=== PATIENT | male | born 1985 | race Caucasian/White ===

== ENCOUNTER 2017-12-10 14:38 | Emergency (ER) | payer SELFPAY ==
[~2017-12-10 14:38] MED LIST: CITA-156 PO; CLI150 PO; DICL-192 PO; EPIN0.3P15 IM; IBUP800T37 PO; LOR5/325 PO; NO MEDS; PER PO; PRED20TA6 PO; TRAM-420 PO
[2017-12-10 15:22] LABS: PLATELET COUNT, AUTOMATED 254 K/uL (150-450)
--- NOTE | 2017-12-10 15:25 | ER Report ---
History and Physical Time Seen By MD: 14:46 Hx. of Stated Complaint: PT REPORTS R GROIN AND R TESTICLE PAIN THAT STARTED YESTERDAY HPI/ROS CHIEF COMPLAINT: Abdomen/testicular pain HISTORY OF PRESENT ILLNESS: Patient is a 32-year-old male who presents the ED with complaint of right growing/right testicular pain that he had noted for the past day. He denies any injury. 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 Nausea, vomiting, diarrhea, constipation, fever. He states that he has not noted any dysuria, penile discharge, hematuria, increased urinary frequency. He denies any risk of STDs. He states they think he has noticed some testicular swelling now in his right testicle. He has no history of abdominal surgeries. REVIEW OF SYSTEMS: Constitutional: No fever, no chills. Eyes: No discharge. ENT: No sore throat. Cardiovascular: No chest pain, no palpitations. Respiratory: No cough, no shortness of breath. Gastrointestinal: See history of present illness. Genitourinary: See history of present illness. Musculoskeletal: No back pain. Skin: No rashes. Neurological: No headache. Allergies: Coded Allergies: BEE STINGS (Verified Allergy, Intermediate, ANAPHYLAXIS, 12/10/17) Penicillins (Verified Allergy, Mild, 12/10/17) Home Meds Active Scripts Epinephrine (EPIPEN 2-SEJAL) 0.3 Mg/0.3 Ml Pen.injctr, 0.3 MG IM ONCE, #2 VIAL Prov:KIESHA FLORES [facility] 02/10/17 Discontinued Scripts Prednisone (PREDNISONE) 20 Mg Tablet, 20 MG PO BID, #10 TAB Prov:KIESHA FLORES [facility] 02/10/17 Diclofenac Sodium (DICLOFENAC SODIUM) 50 Mg Tablet.dr, 50 MG PO TID, #20 TAB Prov:YAYA BLUE PA-C 01/13/17 Reviewed Nurses Notes: Yes Old Medical Records Reviewed: Yes Hx Smoking: Yes (1PPD) Smoking Status: Current: Every Day Smoker Hx Substance Use Disorder: No Hx Alcohol Use: No Constitutional Vital Sign - Last 24 Hours 12/10/17 12/10/17 12/10/17 12/10/17 14:40 14:48 14:53 15:00 Temp 97.5 Pulse 103 98 Resp 16 B/P (MAP) 132/86 132/86 (101) 129/85 (100) Pulse Ox 98 97 O2 Delivery Room Air 12/10/17 12/10/17 12/10/17 12/10/17 15:08 15:23 15:30 15:38 Pulse 90 87 B/P (MAP) 123/78 (93) Pulse Ox 94 97 95 12/10/17 12/10/17 12/10/17 12/10/17 15:43 15:58 16:00 16:13 Pulse 90 92 89 B/P (MAP) 130/89 (103) Pulse Ox 95 94 94 Physical Exam General Appearance: The patient is alert, has no immediate need for airway protection and no signs of toxicity. Patient appears to be in no acute distress. Eyes: Pupils equal and round no pallor or injection. ENT, Mouth: Mucous membranes are moist. Respiratory: There are no retractions, lungs are clear to auscultation. Cardiovascular: Regular rate and rhythm. Gastrointestinal: There is right lower quadrant/right groin pain with palpation. There is pain with palpation of the right testicle does appear to be some slight swelling in this area. No rebound or guarding is present. Normal bowel sounds in all 4 quadrants. Skin: Warm and dry, no rashes. Musculoskeletal: Neck is supple non tender. Extremities are nontender, nonswollen and have full range of motion. DIFFERENTIAL DIAGNOSIS: After history and physical exam differential diagnosis was considered for abdominal pain including but not limited to appendicitis, cholecystitis, gastritis and urinary tract infection. Medical Decision Making Data Points Result Diagram: 12/10/17 1451 12/10/17 1451 Laboratory Hematology Test 12/10/17 14:51 Red Blood Count 5.65 M/uL (4.00-5.60) Mean Corpuscular Volume 88.6 fL (80.0-96.0) Mean Corpuscular Hemoglobin 31.7 pg (26.0-33.0) Mean Corpuscular Hemoglobin Concent 35.8 g/dL (32.0-36.0) Red Cell Distribution Width 13.6 % (11.5-14.5) Mean Platelet Volume 8.0 fL (7.2-11.1) Neutrophils (%) (Auto) 70.9 % (39.4-72.5) Lymphocytes (%) (Auto) 18.0 % (17.6-49.6) Monocytes (%) (Auto) 9.4 % (4.1-12.4) Eosinophils (%) (Auto) 1.2 % (0.4-6.7) Basophils (%) (Auto) 0.5 % (0.3-1.4) Nucleated RBC Relative Count (auto) 0.1 /100WBC Neutrophils # (Auto) 10.5 K/uL (2.0-7.4) Lymphocytes # (Auto) 2.7 K/uL (1.3-3.6) Monocytes # (Auto) 1.4 K/uL (0.3-1.0) Eosinophils # (Auto) 0.2 K/uL (0.0-0.5) Basophils # (Auto) 0.1 K/uL (0.0-0.1) Nucleated RBC Absolute Count (auto) 0.01 K/uL Urine Color Yellow Urine Clarity Slightly-cloudy Urine pH 8.0 pH (4.8-9.5) Urine Specific [place] 1.020 Urine Protein Negative mg/dL (NEGATIVE) Urine Glucose (UA) Negative mg/dL (NEGATIVE) Urine Ketones Negative mg/dL (NEGATIVE) Urine Blood Negative (NEGATIVE) Urine Nitrite Negative (NEGATIVE) Urine Bilirubin Negative (NEGATIVE) Urine Urobilinogen Negative mg/dL (0.2-1.9) Urine Leukocyte Esterase Small (NEGATIVE) Urine RBC 7 /HPF (0-2/HPF) Urine WBC 67 /HPF (0-5/HPF) Urine Squamous Epithelial Cells None /LPF (</=FEW) Urine Amorphous Crystals Few /HPF Urine Bacteria Negative /HPF (NONE-FEW) Urine Mucus None /HPF (NONE-FEW) Sodium Level 139 mmol/L (137-145) Potassium Level 4.0 mmol/L (3.5-5.0) Chloride Level 100 mmol/L (98-107) Carbon Dioxide Level 28 mmol/L (22-30) Blood Urea Nitrogen 22 mg/dl (9-21) Creatinine 0.80 mg/dl (0.66-1.25) Glomerular Filtration Rate Calc > 60.0 Random Glucose 86 mg/dl (75-110) Calcium Level 9.4 mg/dl (8.4-10.2) Total Bilirubin 0.6 mg/dl (0.2-1.3) Aspartate Amino Transf (AST/SGOT) 30 U/L (0-35) Alanine Aminotransferase (ALT/SGPT) 35 U/L (0-56) Alkaline Phosphatase 105 U/L (0-126) Total Protein 7.4 g/dl (6.3-8.2) Albumin 4.3 g/dl (3.5-5.0) Chemistry Test 12/10/17 14:51 White Blood Count 14.8 k/uL (4.5-11.0) Red Blood Count 5.65 M/uL (4.00-5.60) Hemoglobin 17.9 g/dL (14.0-18.0) Hematocrit 50.1 % (42.0-52.0) Mean Corpuscular Volume 88.6 fL (80.0-96.0) Mean Corpuscular Hemoglobin 31.7 pg (26.0-33.0) Mean Corpuscular Hemoglobin Concent 35.8 g/dL (32.0-36.0) Red Cell Distribution Width 13.6 % (11.5-14.5) Platelet Count 254 K/uL (150-450) Mean Platelet Volume 8.0 fL (7.2-11.1) Neutrophils (%) (Auto) 70.9 % (39.4-72.5) Lymphocytes (%) (Auto) 18.0 % (17.6-49.6) Monocytes (%) (Auto) 9.4 % (4.1-12.4) Eosinophils (%) (Auto) 1.2 % (0.4-6.7) Basophils (%) (Auto) 0.5 % (0.3-1.4) Nucleated RBC Relative Count (auto) 0.1 /100WBC Neutrophils # (Auto) 10.5 K/uL (2.0-7.4) Lymphocytes # (Auto) 2.7 K/uL (1.3-3.6) Monocytes # (Auto) 1.4 K/uL (0.3-1.0) Eosinophils # (Auto) 0.2 K/uL (0.0-0.5) Basophils # (Auto) 0.1 K/uL (0.0-0.1) Nucleated RBC Absolute Count (auto) 0.01 K/uL Urine Color Yellow Urine Clarity Slightly-cloudy Urine pH 8.0 pH (4.8-9.5) Urine Specific [place] 1.020 Urine Protein Negative mg/dL (NEGATIVE) Urine Glucose (UA) Negative mg/dL (NEGATIVE) Urine Ketones Negative mg/dL (NEGATIVE) Urine Blood Negative (NEGATIVE) Urine Nitrite Negative (NEGATIVE) Urine Bilirubin Negative (NEGATIVE) Urine Urobilinogen Negative mg/dL (0.2-1.9) Urine Leukocyte Esterase Small (NEGATIVE) Urine RBC 7 /HPF (0-2/HPF) Urine WBC 67 /HPF (0-5/HPF) Urine Squamous Epithelial Cells None /LPF (</=FEW) Urine Amorphous Crystals Few /HPF Urine Bacteria Negative /HPF (NONE-FEW) Urine Mucus None /HPF (NONE-FEW) Glomerular Filtration Rate Calc > 60.0 Calcium Level 9.4 mg/dl (8.4-10.2) Total Bilirubin 0.6 mg/dl (0.2-1.3) Aspartate Amino Transf (AST/SGOT) 30 U/L (0-35) Alanine Aminotransferase (ALT/SGPT) 35 U/L (0-56) Alkaline Phosphatase 105 U/L (0-126) Total Protein 7.4 g/dl (6.3-8.2) Albumin 4.3 g/dl (3.5-5.0) Urinalysis Test 12/10/17 14:51 Urine Color Yellow Urine Clarity Slightly-cloudy Urine pH 8.0 pH (4.8-9.5) Urine Specific [place] 1.020 Urine Protein Negative mg/dL (NEGATIVE) Urine Glucose (UA) Negative mg/dL (NEGATIVE) Urine Ketones Negative mg/dL (NEGATIVE) Urine Blood Negative (NEGATIVE) Urine Nitrite Negative (NEGATIVE) Urine Bilirubin Negative (NEGATIVE) Urine Urobilinogen Negative mg/dL (0.2-1.9) Urine Leukocyte Esterase Small (NEGATIVE) Urine RBC 7 /HPF (0-2/HPF) Urine WBC 67 /HPF (0-5/HPF) Urine Squamous Epithelial Cells None /LPF (</=FEW) Urine Amorphous Crystals Few /HPF Urine Bacteria Negative /HPF (NONE-FEW) Urine Mucus None /HPF (NONE-FEW) ED Course/Re-evaluation ED Course Will obtain labs and ultrasound. 12/10/2017 4:43:41 pm - discussed imaging lab results with patient. It appears that he does have some inflammation of his right epididymis and a small hernia but only containing fat on the right inguinal canal area. He does have some leukocytosis and elevated white blood cells in his urine which could further indicate some epididymitis. He denies any STDs and does not want to be checked for this. Will place him on levofloxacin for epididymitis and will give him 1 g Rocephin here. Decision to Disposition Date: Dec 10, 2017 Decision to Disposition Time: 16:45 Depart Departure Latest Vital Signs Vital Signs Date Time Temp Pulse Resp B/P (MAP) Pulse Ox O2 Delivery O2 Flow Rate FiO2 12/10/17 16:13 89 94 12/10/17 16:00 130/89 (103) 12/10/17 14:40 97.5 16 Room Air Impression: Primary Impression: Epididymitis, right Condition: Improved Disposition: HOME OR SELF-CARE New Scripts Levofloxacin 500 Mg Tab (LEVOFLOXACIN 500 MG TAB) 500 Mg Tablet 500 MG PO DAILY for 10 Days, #10 TAB Prov: YAYA BLUE PA-C 12/10/17 Patient Instructions: Epididymitis (ED) Additional Instructions: Stay well-hydrated. Take antibiotics as prescribed. Follow up with her primary care provider in 3-4 days. If having any worsening or concerning symptoms may return to the emergency department. YAYA BLUE PA-C Dec 10, 2017 15:25
[2017-12-10] MEDS ORDERED: KETOROLAC 15 MG/ML VIAL IVP ONE (15:35)
--- NOTE | 2017-12-10 16:36 | RADIOLOGY IMAGING REPORT ---
FAC[place] [facility] [place]IENT NAME: Mauricio Reinoso : 1985 MR: [id number] V: [id number] EXAM DATE: ORDERING PHYSICIAN: YAYA BLUE TECHNOLOGIST: Location: [facility] Patient: Mauricio Reinoso : 1985 Visit/Account:[id number] Date of Sevice: 12/10/2017 EXAMINATION: Scrotal ultrasound with duplex Doppler evaluation. Right groin ultrasound HISTORY: Right groin/testicular pain. COMPARISON: None. FINDINGS: Normal size and echogenicity of both testicles. No focal intratesticular mass. The right testis albert ures 2.6 x 1.4 x 1.8 cm; the left testis 3.3 x 1.6 x 2.2 cm. Both testicles demonstrate normal and sy mmetric vascularity with Doppler evaluation. The body and tail of the right epididymis are enlarged and heterogeneous with increased vascularity, suspicious for epididymitis. The right epididymal head measures 7 mm. The left epididymis is unremarkable. The left epididymal head measures 12 mm with normal vascularity. There is a small right-sided hydrocele. There is a small left-sided varicocele. Additional imaging was performed along both groins, without and with Valsalva. On the right side, th ere appears to be slight extension of fat along the upper inguinal canal with Valsalva which may repr esent a small inguinal hernia. No herniated bowel loops are visualized. Soft tissue structures of the left groin are unremarkable. No left inguinal hernia is visualized. IMPRESSION: 1. Normal ultrasound appearance of both testicles, with normal vascularity. 2. The body and tail of the right epididymis are enlarged and heterogeneous with increased vascularit y, suspicious for epididymitis. 3. Small right hydrocele. 4. Small left varicocele. 5. Possible small fat-containing right inguinal hernia noted with Valsalva, with likely extension of a small amount of fat along the upper inguinal canal. No evidence of any herniated bowel loops. Report Dictated By: Caleb Partida MD at 12/10/2017 4:22 PM Report E-Signed By: Caleb Partida MD at 12/10/2017 4:32 PM WSN:[id number]
--- NOTE | 2017-12-10 16:36 | RADIOLOGY IMAGING REPORT ---
FAC[place] [facility] [place] NAME: Mauricio Reinoso : 1985 MR: [id number] V: [id number] EXAM DATE: ORDERING PHYSICIAN: YAYA BLUE TECHNOLOGIST: Location: [facility] Patient: Mauricio Reinoso : 1985 Visit/Account:[id number] Date of Sevice: 12/10/2017 EXAMINATION: Scrotal ultrasound with duplex Doppler evaluation. Right groin ultrasound HISTORY: Right groin/testicular pain. COMPARISON: None. FINDINGS: Normal size and echogenicity of both testicles. No focal intratesticular mass. The right testis albert ures 2.6 x 1.4 x 1.8 cm; the left testis 3.3 x 1.6 x 2.2 cm. Both testicles demonstrate normal and sy mmetric vascularity with Doppler evaluation. The body and tail of the right epididymis are enlarged and heterogeneous with increased vascularity, suspicious for epididymitis. The right epididymal head measures 7 mm. The left epididymis is unremarkable. The left epididymal head measures 12 mm with normal vascularity. There is a small right-sided hydrocele. There is a small left-sided varicocele. Additional imaging was performed along both groins, without and with Valsalva. On the right side, th ere appears to be slight extension of fat along the upper inguinal canal with Valsalva which may repr esent a small inguinal hernia. No herniated bowel loops are visualized. Soft tissue structures of the left groin are unremarkable. No left inguinal hernia is visualized. IMPRESSION: 1. Normal ultrasound appearance of both testicles, with normal vascularity. 2. The body and tail of the right epididymis are enlarged and heterogeneous with increased vascularit y, suspicious for epididymitis. 3. Small right hydrocele. 4. Small left varicocele. 5. Possible small fat-containing right inguinal hernia noted with Valsalva, with likely extension of a small amount of fat along the upper inguinal canal. No evidence of any herniated bowel loops. Report Dictated By: Caleb Partida MD at 12/10/2017 4:22 PM Report E-Signed By: Caleb Partida MD at 12/10/2017 4:32 PM WSN:[id number]
[2017-12-10] MEDS ORDERED: LEVO500T83 PO (16:47)
[2017-12-10] MEDS ORDERED: LIDOCAINE 1% MDV 200 MG/20 ML INJ ONE (16:50)
[2017-12-10] MEDS ORDERED: cefTRIAXone 1 GM VIAL IVP ONE (16:50)
[2017-12-10 17:00] VITALS: BP 121/79
== END 2017-12-10 17:06 | disposition home or self-care (01) ==
LOC: ER 14:45
DX: N45.1 Epididymitis (principal); N43.3 Hydrocele, unspecified; K40.90 Unilateral inguinal hernia, without obstruction or gangrene, not specified as recurrent
CPT/HCPCS: 76705; 76870; 81001; 85025; 96374; 96375; 99284; J0696; J1885; 82040; 82247; 82310; 82374; 82435; 82565; 82947; 84075; 84132; 84155; 84295; 84450; 84460; 84520

== ENCOUNTER 2018-09-15 08:27 | Emergency (ER) | payer SELFPAY ==
[~2018-09-15 08:27] MED LIST changes: +LEVO500T83 PO
[2018-09-15 08:34] VITALS: BP 135/86
--- NOTE | 2018-09-15 09:04 | ER Report ---
History and Physical Time Seen By MD: 09:04 Hx. of Stated Complaint: three days of congestion. states head feels like it is going to explode. weakness and lethargic today. denies fevers. HPI/ROS CHIEF COMPLAINT: Sinus pressure HISTORY OF PRESENT ILLNESS: Patient is a 33-year-old male who comes in with g reater than 72 hours worth of sinus pressure specifically to the right maxillary sinus patient is a smoker. Patient states no fevers or chills. Reports his was recently hospitalized a few weeks ago with "sinusitis". He admits sore throat bilateral ear pain and cough. REVIEW OF SYSTEMS: ENT: Right maxillary sinus pain, sore throat, bilateral ear pain, nasal discharge, postnasal drip, nonproductive cough. Cardiovascular: No chest pain, no palpitations. Gastrointestinal: No vomiting, no abdominal pain. Musculoskeletal: No back pain. Allergies: Coded Allergies: BEE STINGS (Verified Allergy, Intermediate, ANAPHYLAXIS, 09/15/18) Penicillins (Verified Allergy, Mild, 09/15/18) Home Meds Active Scripts Pseudoephedrine Hcl (SUDAFED 12 HOUR) 120 Mg Tablet.er, 120 MG PO Q12H for congestion, #20 TAB 0 Refills Prov:MARY ZUNIGA MD 09/15/18 Doxycycline Hyclate (DOXYCYCLINE HYCLATE) 100 Mg Tablet, 100 MG PO BID for 7 Days, #14 TAB 0 Refills Prov:MARY ZUNIGA MD 09/15/18 Levofloxacin 500 Mg Tab (LEVOFLOXACIN 500 MG TAB) 500 Mg Tablet, 500 MG PO DAILY for 10 Days, #10 TAB Prov:YAYA BLUE PA-C 12/10/17 Epinephrine (EPIPEN 2-SEJAL) 0.3 Mg/0.3 Ml Pen.injctr, 0.3 MG IM ONCE, #2 VIAL Prov:KIESHA FLORES 02/10/17 Past Medical/Surgical History Noncontributory towards his chief complaint Hx Smoking: Yes (1PPD) Smoking Status: Current: Every Day Smoker Hx Substance Use Disorder: No Hx Alcohol Use: No Constitutional Vital Sign - Last 24 Hours 09/15/18 09/15/18 09/15/18 09/15/18 08:30 08:32 08:34 09:00 Temp 98.2 Pulse ??? 98 97 Resp 20 B/P (MAP) 135/86 (102) Pulse Ox 93 94 O2 Delivery Room Air 09/15/18 09:30 Pulse 93 Pulse Ox 94 Physical Exam General Appearance: Alert, no distress. Eyes: Pupils equal and round no pallor or injection. ENT, Mouth: Ears: Tympanic membranes are normal. Nose: No bleeding. Mouth: Mucous membranes are moist. Throat: Patient noted with pharyngeal erythema without exudate, no palatal petechiae. Posterior cobblestoning noted in the back of throat. Musculoskeletal: Neck is supple non tender, no adenopathy. Skin: Warm and dry, no rashes. LUngs: Wheeze with cough otherwise clear lung disla Medical Decision Making ED Course/Re-evaluation ED Course Patient with clinical sinusitis. We'll treat empirically with oral antibiotics. Decision to Disposition Date: Sep 15, 2018 Decision to Disposition Time: 09:32 Depart Departure Latest Vital Signs Vital Signs Date Time Temp Pulse Resp B/P (MAP) Pulse Ox O2 Delivery O2 Flow Rate FiO2 09/15/18 09:30 93 94 09/15/18 08:34 135/86 (102) 09/15/18 08:32 98.2 20 Room Air Impression: Primary Impression: Acute sinusitis Condition: Improved Disposition: HOME OR SELF-CARE New Scripts Pseudoephedrine Hcl (SUDAFED 12 HOUR) 120 Mg Tablet.er 120 MG PO Q12H for congestion, #20 TAB 0 Refills Prov: MARY ZUNIGA MD 09/15/18 Doxycycline Hyclate (DOXYCYCLINE HYCLATE) 100 Mg Tablet 100 MG PO BID for 7 Days, #14 TAB 0 Refills Prov: MARY ZUNIGA MD 09/15/18 Departure Forms: ER Transition Record, Medications Reconciliation, Off Work/School Form, School or Work Release?: Work Number of days to be released: 3 Patient Portal Information Patient Instructions: Sinusitis (ED) Problem Qualifiers Primary Impression: Acute sinusitis Sinusitis location: maxillary Recurrence: non-recurrent Qualified Codes: J01.00 - Acute maxillary sinusitis, unspecified MARY ZUNIGA MD Sep 15, 2018 09:04
[2018-09-15] MEDS ORDERED: ALBUTEROL 8 GM INHALER INH ONE (09:30)
[2018-09-15] MEDS ORDERED: DOXYCYCLINE HYCL 100 MG TAB PO ONE (09:30)
[2018-09-15] MEDS ORDERED: PSEU120T69 PO (09:33)
[2018-09-15] MEDS ORDERED: DOXY-179 PO (09:33)
== END 2018-09-15 09:47 | disposition home or self-care (01) ==
LOC: ER 09:04
DX: J01.00 Acute maxillary sinusitis, unspecified (principal)
CPT/HCPCS: 94640; 99283